=== PATIENT | female | born 1940 | race Caucasian/White ===

== ENCOUNTER 2017-03-07 14:31 | Observation (INO) | payer MEDICARE, BC ==
[2017-03-07 15:10] LABS: Hematocrit 38 % (35-47); Hemoglobin 12.6 g/dl (12.0-16.0); Mean Corpuscular HGB Conc 33 g/dl (31-36); Mean Corpuscular Hemoglobin 31 pg (27-31); Mean Corpuscular Volume 92 fL (80-97); Mean Platelet Volume 8 um3 (7.4-10.4); Red Blood Count 4.14 10^6/ul (4.0-5.4); Red Cell Distribution Width 15 % (10.5-15)
[2017-03-07 15:26] LABS: BUN/Creatinine Ratio 25.4 (8-20); EGFR Non-African American 79.6 (>60); Potassium 3.8 mmol/L (3.5-5.0)
[2017-03-07 15:27] LABS: C Reactive Protein 1.5 mg/L (< 5.00); Calcium 9.1 mg/dL (8.6-10.3); EGFR African American 102.4 (>60); Globulin 2.6 g/dL (2-4); Magnesium 2.5 mg/dL (1.9-2.7); Total Bilirubin 0.3 mg/dL (0.2-1.0); Total Protein 6.6 g/dL (6.4-8.9)
[2017-03-07 15:28] LABS: Troponin I 0.01 ng/mL (<0.04)
[2017-03-07] MEDS ORDERED: NS 0.9% 1000 ML* 1,000 ML IV ONE (15:57)
[2017-03-07 15:58] LABS: TSH (Thyroid Stimulating Horm) 0.72 mcIU/mL (0.34-5.60)
[2017-03-07] MEDS ORDERED: Ondansetron INJ* 2 MG/ML VIAL IV ONE (15:58)
--- NOTE | 2017-03-07 16:39 | RAD ---
INDICATION: Severe epigastric pain and shortness of breath COMPARISON: None. TECHNIQUE: Single AP portable view of the chest was obtained. FINDINGS: Image quality is compromised due to the relative inferiority of a portable chest x-ray. There is a surgical clip overlying the right lung apex. The heart and mediastinum exhibit normal size and contour. There is coarse calcification overlying the arch of the aorta. On the AP view the lungs appear hyperaerated. There is pleural-based linear density overlying the medial aspect of the right lung apex adjacent to the surgical clip. Otherwise the lungs are grossly clear. There is no evidence of a large pleural effusion. Visualized bones are normal for the patient's age. IMPRESSION: No radiographic evidence for acute cardiopulmonary abnormality on this portable chest x-ray.
--- NOTE | 2017-03-07 17:13 | RAD ---
HISTORY: Epigastric pain COMPARISONS: None TECHNIQUE: Multiple transverse and longitudinal ultrasound images were obtained of the right upper quadrant. FINDINGS: LIVER: The liver is normal in dimensions and echogenicity. Normal hepatic and portal venous blood flow is duplicated with color flow imaging. There is no gross intrahepatic biliary duct dilatation. GALLBLADDER AND EXTRAHEPATIC BILIARY DUCT: There are multiple echogenic shadowing and mobile stones in the gallbladder lumen. There is no pericholecystic fluid or gallbladder wall thickening. The common bile duct measures a maximum diameter of 6 mm. PANCREAS: The portions of the pancreas not obscured by bowel gas are normal in appearance. RIGHT KIDNEY: The right kidney is normal in size, morphology and echogenicity. AORTA AND IVC: The visualized portions are normal in appearance and not pathologically dilated. IMPRESSION: CHOLELITHIASIS WITHOUT APPEARANCE OF BILIARY OBSTRUCTION OR ACUTE INFLAMMATORY CHANGE.
[2017-03-07 17:31] LABS: Urine Bilirubin Negative (Negative); Urine Glucose Negative (Negative); Urine Nitrite Negative (Negative)
[2017-03-07] MEDS ORDERED: Al Hydrox/Mg Hydrox/Simet LIQ* 30 ML UDC PO PRN (18:42)
[2017-03-07] MEDS ORDERED: Ondansetron INJ* 2 MG/ML VIAL IV PRN (18:42)
[2017-03-07] MEDS ORDERED: NS 0.9% 1000 ML* 1,000 ML IV SCH (18:45)
[2017-03-07] MEDS ORDERED: Albuterol HFA INHALER* 8 gm MDI INH PRN (18:51)
[2017-03-07] MEDS ORDERED: Ketorolac INJ* 15 MG/ML 1 ML VIAL IV PUSH PRN (18:59)
[2017-03-07] MEDS ORDERED: Enoxaparin(*) 30 MG/0.3 ML SYR SUBCUT SCH ×2 (19:00→20:00)
[2017-03-07] MEDS ORDERED: Azithromycin IV(*) 500 MG in NS 0.9% 250 ML* 250 ML IVPB SCH (20:00)
[2017-03-07] MEDS ORDERED: Pantoprazole IV* 40 MG IV SCH (20:00)
[2017-03-07] MEDS: Sucralfate TAB* 1 GM PO SCH (20:24)
[2017-03-07] MEDS ORDERED: ALPRAZolam TAB* 0.5 MG PO SCH (21:00)
--- NOTE | 2017-03-07 23:23 | HP ---
HISTORY AND PHYSICAL: DATE OF ADMISSION: 03/07/17 CHIEF COMPLAINT: Abdominal pain. HISTORY OF PRESENT ILLNESS: Ms. 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 The patient states that her symptoms began in November, when she experienced some pain after eating with associated belching. She states the pain comes on about 20 to 30 minutes after eating and can also last for hours. She reports it is associated with nausea, but no vomiting. She has seen a GI doctor named Dr. Feror in [place], who reportedly referred her to [facility] where she was evaluated by a surgeon and it was felt that her symptoms were due to her gallstones, but they felt that she was too high risk for surgery. She also reports having an endoscopy done by a Dr. Varner at [facility] on 01/22/17, however, I do not have the report. The patient has been trying to maintain a low-fat diet; however, it seems that regardless of what she eats the pain seems to continue to progress. Last night , she had some Cheerios with almond milk and the pain became severe and she is still not feeling better this morning. She called a local GI office to see if she can get in and they recommended she come to the emergency room for further evaluation. The patient also incidentally reports some chest pain, which occurred a few days ago that was very sharp on the left side; it lasted for about 10 minutes. She said it was not pleuritic. She has not had any recent fever, chills, dysuria, hematuria, hematochezia, or melena. In regards to the patient's MAME, she was initially diagnosed in 2009. More recently, she has had some CT scans that have shown some new pulmonary nodules and progressions of old ones, and Dr. West has been concerned about possible recurrence and has restarted her on a triple antibiotic therapy, which she has been on for about 3 weeks now. PAST MEDICAL HISTORY: COPD, on home oxygen 2 L; MAME; pneumothorax; depression; hypertension. PAST SURGICAL HISTORY: Lung biopsy. HOME MEDICATIONS: 1. Ethambutol 400 mg by mouth 3 times weekly. 2. Mycobutin 300 mg by mouth 3 times weekly. 3. Azithromycin 500 mg by mouth 3 times weekly. 4. Amlodipine 5 mg by mouth daily. 5. Vitamin E 400 units by mouth daily. 6. Effexor 75 mg by mouth daily. 7. Anoro 1 puff inhaled daily. 8. Probiotic 1 tablet by mouth daily. 9. Protonix 40 mg by mouth daily. 10. Magnesium oxide 400 mg by mouth daily. 11. Glucosamine chondroitin 1 tablet by mouth daily. 12. Folic acid 1 mg by mouth daily. 13. Ferrous gluconate 27 mg by mouth daily. 14. Vitamin B12 500 mcg by mouth daily. 15. Calcium citrate 1 tablet by mouth daily. 16. Vitamin C 500 mg by mouth daily. 17. Albuterol 1 puff inhaled every 6 hours as needed for shortness of breath or wheezing. 18. Xanax 0.5 mg by mouth at bedtime. 19. Carafate 1 g 4 times daily. ALLERGIES: The patient reports no known drug allergies. FAMILY HISTORY: Significant for father with Alzheimer's and mother with depression. SOCIAL HISTORY: The patient is a former [id number]-year smoker, quit in 1994. Denies any alcohol or illicit drug use. REVIEW OF SYSTEMS: A 12-point review of systems is negative except for that as noted in the HPI. PHYSICAL EXAMINATION GENERAL: The patient is a thin, elderly, female, lying in bed, in no apparent distress. VITAL SIGNS: On admission, temperature 99.7, heart rate of 108, respiratory rate of 16, O2 saturation 94% on 3 L, blood pressure 127/86. HEENT: Head: Normocephalic, atraumatic. Eyes: Pupils equal, round, and reactive to light and accommodation. Anicteric sclerae. ENT: Dry mucous membranes. No cervical adenopathy. LUNGS: Clear to auscultation bilaterally, prolonged expiratory phase. No wheezing appreciated. CARDIOVASCULAR: Sinus tachycardia. No murmurs, gallops, or rubs. ABDOMEN: Soft, nondistended, tender to palpation in the epigastric area. No rebound or guarding. Bowel sounds are positive. EXTREMITIES: No cyanosis, clubbing, or edema. NEURO: The patient is alert and oriented x3. No focal neurological deficits. DIAGNOSTIC STUDIES/LAB DATA: White blood cell count of 4, hematocrit of 38, platelets of 186. INR of 0.93. D-dimer negative. Sodium 138, potassium 3.8, chloride 102, carbon dioxide 33, BUN of 18, creatinine of 0.71, glucose of 135, lactic acid of 1.4, calcium 9.1. LFTs within normal limits. Troponin 0.01. CRP of 1.5. BNP of 104. TSH of 0.72. Lipase of 19. UA negative. Chest x-ray personally reviewed shows hyperexpanded lungs. No acute changes. Abdominal ultrasound shows cholelithiasis without appearance of obstruction or acute inflammatory changes. EKG personally reviewed shows sinus tachycardia, PAC, some possible ST depressions in the lateral leads as well as II and aVF. ASSESSMENT AND PLAN: Progressive postprandial abdominal pain, nausea, and a recent bout of chest pain in a 76-year-old female with a history of known cholelithiasis; chronic obstructive pulmonary disease, on home oxygen; Mycobacterium avium- intracellulare infection, on triple therapy; hypertension; depression. 1. Abdominal pain. This certainly could be biliary colic. The patient states she was seen by a surgeon in the [facility] and was felt to be too high risk for surgery. It was recommended she be referred by her PCP to [facility] as an outpatient. I do not think we will be able to resolve this here in the hospital. I will try to minimize her p.o. pills overnight. For now, we will give her IV PPI in case there is some element of gastritis or ulcer, although it does not sound like that was the case on her recent EGD. We will try to obtain those records. Continue her home Carafate. We will give Toradol for any colicky pain. I am not sure that a surgical or a GI consult would be of any benefit at this time, although can reevaluate after obtaining some more outside records. The patient does report some weight loss about 10 pounds in the last 2 months. We will order nutrition consult. She may benefit from some nutritional supplements. 2. Chest pain. Had a brief episode a few days ago. The patient does have some ST depressions on her EKG. Unfortunately, we have no old EKGs to compare to. Initial troponin is negative. It seems unlikely to be acute coronary syndrome, although the patient does have some risk factors. Continue to trend her troponins and repeat an EKG in the morning. We will hold off on a stress test right now. 3. Mycobacterium avium-intracellulare infection. We will continue the patient' s home antibiotic therapy for now. We will continue the patient with IV azithromycin tonight, can reorder her ethambutol for tomorrow night, and rifabutin the following night if she is still here. 4. Chronic obstructive pulmonary disease. It seems to be at her baseline. We will continue p.r.n. albuterol and we will use Dulera while the patient is hospitalized. Continue her home supplemental oxygen. 5. Hypertension. Continue amlodipine. 6. DVT prophylaxis. Lovenox subcu. 7. Code status. The patient is a full code. TIME SPENT: Total time spent on this admission 65 minutes with over the half the time spent [id number] with the patient in counseling and coordinating care. [id number]/[facility] #: [id number] EMMY
[2017-03-08] MEDS: Sucralfate TAB* 1 GM PO SCH ×2 (07:46→14:01)
[2017-03-08] MEDS ORDERED: Umeclidin/Vilant 62.5 MDI 62.5/25 mcg 14 INH ELLIPTA DEVICE INH SCH (09:00)
[2017-03-08] MEDS ORDERED: amLODIPine TAB* 5 MG PO SCH (09:00)
[2017-03-08] MEDS ORDERED: Venlafaxine EXT RELEASE CAP* 75 MG PO SCH (09:00)
[2017-03-08] MEDS ORDERED: Magnesium Oxide TAB* 400 MG PO SCH (09:00)
[2017-03-08] MEDS ORDERED: Lactobacillus Acidophilu (GG)* 1 CAP CAP PO SCH (09:00)
--- NOTE | 2017-03-08 09:04 | ED ---
Allyssa Blake Alfonso, scribed for Vince Caraballo MD on 03/07/17 at 1548 . Abdominal Pain/Female - HPI Summary HPI Summary: This patient is a 76 year old F presenting to [facility] accompanied by with a chief complaint of epigastric pain since three months ago. The CC is described as aching. The patient rates the pain 3/10 in severity. Symptoms aggravated by oral abx and alleviated by nothing. Not alleviated by dietary changes. Patient reports nausea, loss of appetite, and weight loss (10 lb in past few days). She denies vomiting. She reports a GI and surgical consult which revealed gallstones and gallbladder problems that they wont operate on. Patient is on NC. PMHx of COPD and HTN. - History of Current Complaint Chief Complaint: EDAbdPain Stated Complaint: ABD PAIN,SOB Time Seen by Provider: 03/07/17 15:36 Hx Obtained From: Patient Onset/Duration: Sudden Onset, Lasting Weeks - 3 months, Still Present Timing: Constant Severity Initially: Moderate Severity Currently: Moderate Pain Intensity: 3 Pain Scale Used: 0-10 Numeric Location: Epigastric Character: Other: - Aching Aggravating Factor(s): Other: - Oral abx Alleviating Factor(s): Nothing Associated Signs and Symptoms: Positive: Nausea, Other: - Positive loss of appetite, weight loss.. Negative: Vomiting Allergies/Adverse Reactions: Allergies Allergy/AdvReac Type Severity Reaction Status Date / Time No Known Allergies Allergy Verified 03/07/17 14:34 PMH/Surg Hx/FS Hx/Imm Hx Cardiovascular History: Reports: Hx Hypertension Respiratory History: Reports: Hx Chronic Obstructive Pulmonary Disease (COPD) Infectious Disease History: No Infectious Disease History: Reports: History Other Infectious Disease - MYCOBACTERIAL INFECTION OF LUNGS Denies: Traveled Outside the [place] in Last 30 Days - Family History Known Family History: Positive: Hypertension - Social History Alcohol Use: Occasionally Alcohol Amount: SOCIAL Substance Use Type: Reports: None Smoking Status (MU): Former Smoker Review of Systems Negative: Fever Positive: Abdominal Pain - Epigastric, Nausea, Other - Positive loss of appetite , and weight loss. Negative: Vomiting All Other Systems Reviewed And Are Negative: Yes Physical Exam - Summary Physical Exam Summary: VITAL SIGNS: Reviewed. GENERAL: Patient is a thin elderly female who is lying comfortable in the stretcher. Patient is not in any acute respiratory distress. HEAD AND FACE: Normocephalic and atraumatic. EYES: PERRLA, EOMI x 2, No injected conjunctiva. EARS: Hearing grossly intact. Ear canals and tympanic membranes are WNL. MOUTH: Oropharynx within normal limits. Dry oral mucous membranes. NECK: Supple, trachea is midline, no adenopathy, no JVD. CHEST: Symmetric, no tenderness at palpation LUNGS: Clear to auscultation bilaterally. No wheezing or crackles. CVS: RRR, S1 and S2 present, no murmurs or gallops appreciated. ABDOMEN: Soft, non-tender. No signs of distention. Positive bowel sounds. No rebound no guarding, and no masses palpated. No abdominal bruit or pulsations. EXTREMITIES: FROM in all major joints, no edema, no cyanosis or clubbing. NEURO: Alert and oriented x 3. No acute neurological deficits. Speech is normal. SKIN: Dry and warm Triage Information Reviewed: Yes Vital Signs On Initial Exam: Initial Vitals Temp Pulse Resp BP Pulse Ox 99.7 F 108 16 127/86 94 03/07/17 14:34 03/07/17 14:34 03/07/17 14:34 03/07/17 14:34 03/07/17 14:34 Vital Signs Reviewed: Yes - Leonidas Coma Scale Coma Scale Total: 15 Diagnostics - Vital Signs Vital Signs Temp Pulse Resp BP Pulse Ox 03/07/17 15:10 99.7 F 108 22 127/86 94 03/07/17 14:34 99.7 F 108 16 127/86 94 - Laboratory Lab Results: Lab Results 03/07/17 03/07/17 03/07/17 Range/Units 15:00 15:00 15:00 WBC 4.0 (3.5-10.8) 10^3/ul RBC 4.14 (4.0-5.4) 10^6/ul Hgb 12.6 (12.0-16.0) g/dl Hct 38 (35-47) % MCV 92 (80-97) fL MCH 31 (27-31) pg MCHC 33 (31-36) g/dl RDW 15 (10.5-15) % Plt Count 186 (150-450) 10^3/ul MPV 8 (7.4-10.4) um3 Neut % (Auto) 68.8 (38-83) % Lymph % (Auto) 19.7 L (25-47) % [place] % (Auto) 9.7 H (1-9) % Eos % (Auto) 1.2 (0-6) % Baso % (Auto) 0.6 (0-2) % Absolute Neuts (auto) 2.7 (1.5-7.7) 10^3/ul Absolute Lymphs (auto) 0.8 L (1.0-4.8) 10^3/ul Absolute Monos (auto) 0.4 (0-0.8) 10^3/ul Absolute Eos (auto) 0 (0-0.6) 10^3/ul Absolute Basos (auto) 0 (0-0.2) 10^3/ul Absolute Nucleated RBC 0 10^3/ul Nucleated RBC % 0.1 INR (Anticoag Therapy) 0.93 (0.89-1.11) APTT 29.1 (26.0-36.3) seconds D-Dimer, Quantitative < 200 (Less Than 230) ng/mL Sodium 138 (133-145) mmol/L Potassium 3.8 (3.5-5.0) mmol/L Chloride 102 (101-111) mmol/L Carbon Dioxide 33 H (22-32) mmol/L Anion Gap 3 (2-11) mmol/L BUN 18 (6-24) mg/dL Creatinine 0.71 (0.51-0.95) mg/dL Est GFR ( Amer) 102.4 (>60) Est GFR (Non-Af Amer) 79.6 (>60) BUN/Creatinine Ratio 25.4 H (8-20) Glucose 135 H (70-100) mg/dL Lactic Acid (0.5-2.0) mmol/L Calcium 9.1 (8.6-10.3) mg/dL Magnesium 2.5 (1.9-2.7) mg/dL Total Bilirubin 0.30 (0.2-1.0) mg/dL AST 18 (13-39) U/L ALT 14 (7-52) U/L Alkaline Phosphatase 48 (34-104) U/L Total Creatine Kinase 58 (10-223) U/L CK-MB (CK-2) 3.6 (0.6-6.3) ng/mL Troponin I 0.01 (<0.04) ng/mL C-Reactive Protein 1.50 (< 5.00) mg/L B-Natriuretic Peptide ( - 100) pg/mL Total Protein 6.6 (6.4-8.9) g/dL Albumin 4.0 (3.2-5.2) g/dL Globulin 2.6 (2-4) g/dL Albumin/Globulin Ratio 1.5 (1-3) Lipase 19 (11.0-82.0) U/L TSH Pending 03/07/17 03/07/17 Range/Units 15:00 15:00 WBC (3.5-10.8) 10^3/ul RBC (4.0-5.4) 10^6/ul Hgb (12.0-16.0) g/dl Hct (35-47) % MCV (80-97) fL MCH (27-31) pg MCHC (31-36) g/dl RDW (10.5-15) % Plt Count (150-450) 10^3/ul MPV (7.4-10.4) um3 Neut % (Auto) (38-83) % Lymph % (Auto) (25-47) % [place] % (Auto) (1-9) % Eos % (Auto) (0-6) % Baso % (Auto) (0-2) % Absolute Neuts (auto) (1.5-7.7) 10^3/ul Absolute Lymphs (auto) (1.0-4.8) 10^3/ul Absolute Monos (auto) (0-0.8) 10^3/ul Absolute Eos (auto) (0-0.6) 10^3/ul Absolute Basos (auto) (0-0.2) 10^3/ul Absolute Nucleated RBC 10^3/ul Nucleated RBC % INR (Anticoag Therapy) (0.89-1.11) APTT (26.0-36.3) seconds D-Dimer, Quantitative (Less Than 230) ng/mL Sodium (133-145) mmol/L Potassium (3.5-5.0) mmol/L Chloride (101-111) mmol/L Carbon Dioxide (22-32) mmol/L Anion Gap (2-11) mmol/L BUN (6-24) mg/dL Creatinine (0.51-0.95) mg/dL Est GFR ( Amer) (>60) Est GFR (Non-Af Amer) (>60) BUN/Creatinine Ratio (8-20) Glucose (70-100) mg/dL Lactic Acid 1.4 (0.5-2.0) mmol/L Calcium (8.6-10.3) mg/dL Magnesium (1.9-2.7) mg/dL Total Bilirubin (0.2-1.0) mg/dL AST (13-39) U/L ALT (7-52) U/L Alkaline Phosphatase (34-104) U/L Total Creatine Kinase (10-223) U/L CK-MB (CK-2) (0.6-6.3) ng/mL Troponin I (<0.04) ng/mL C-Reactive Protein (< 5.00) mg/L B-Natriuretic Peptide 104 H ( - 100) pg/mL Total Protein (6.4-8.9) g/dL Albumin (3.2-5.2) g/dL Globulin (2-4) g/dL Albumin/Globulin Ratio (1-3) Lipase (11.0-82.0) U/L TSH Result Diagrams: 03/07/17 15:00 03/07/17 15:00 Lab Statement: Any lab studies that have been ordered have been reviewed, and results considered in the medical decision making process. - Radiology CXR Radiology Interpretation Completed By: Radiologist - No radiographic evidence for acute cardiopulmonary abnormality on this portable chest x-ray. - EKG 1442 Cardiac Rate: Tachycardia - BPM 104 EKG Rhythm: Sinus Tachycardia EKG Interpretation: ST depressions in V3-V6, II, and aVF. - Additional Comments Diagnostic Additional Comments: Abdomen US reveals, per radiologist, CHOLELITHIASIS WITHOUT APPEARANCE OF BILIARY OBSTRUCTION OR ACUTE INFLAMMATORY CHANGE. Abdominal Pain Fem Course/Dx - Course Course Of Treatment: This patient is a 76 year old F presenting to [facility] accompanied by with a chief complaint of epigastric pain since three months ago. The CC is described as aching. The patient rates the pain 3/10 in severity. Symptoms aggravated by oral abx and alleviated by nothing. Not alleviated by dietary changes. Patient reports nausea, loss of appetite, and weight loss (10 lb in past few days). She denies vomiting. She reports a GI and surgical consult which revealed gallstones and gallbladder problems that they wont operate on. Patient is on NC. PMHx of COPD and HTN. Test results without any significant abnormalities except for carbon dioxide of 33, glucose of 135, and BNP of 104. Urinalysis negative for UTI. EKG reveals sinus tachycardia and ST depressions in V3-V6, II, and aVF. CXR reveals No radiographic evidence for acute cardiopulmonary abnormality on this portable chest x-ray. Abdomen US reveals CHOLELITHIASIS WITHOUT APPEARANCE OF BILIARY OBSTRUCTION OR ACUTE INFLAMMATORY CHANGE. In the ED course the patient was given IV fluids for hydration. However, because of the EKG ST depression the patient might be dealing with stable angina. Therefore I consulted the case with Dr. Hill (hospitalist) who accepts the patient for admission. Patient is hemodynamically stable and alert and oriented to person, place, and time. - Diagnoses Provider Diagnoses: Epigastric pain, Cholelithiasis, Abnormal EKG - Provider Notifications Discussed Care Of Patient With: Mike Hill Time Discussed With Above Provider: 17:27 Instructed by Provider To: Other - Consulted Dr. Hill (hospitalist) who accepts the patient for admission. Discharge - Discharge Plan Condition: Stable Disposition: ADMITTED TO [facility] The documentation as recorded by the Allyssa canas Alfonso accurately reflects the service I personally performed and the decisions made by me, Vince Caraballo MD.
[2017-03-08] MEDS ORDERED: Mometasone/Formoter 200/5 MDI INH SCH (10:00)
[2017-03-08] MEDS ORDERED: Ursodiol CAP* 300 MG PO SCH (11:00)
[2017-03-08 11:35] VITALS: BP 131/67
--- NOTE | 2017-03-08 14:14 | DCNOTE ---
Patient seen this morning. Tolerated full liquid breakfast with no pain, also tolerated low-fat diet for lunch. EGD records from [place] show no evidence of ulcer or gastritis and GI note remarks that epigastric pain is likely due to gallstones. On exam, RRR, s1 and s2 present, no m/g/r, abd soft, NTND, BS+, lungs with prolonged expiratory phase Will discharge the patient home on Actigall to see if this may contribute to gallstone resolution over time. Recommend she get PCP referral for evaluation for cholecystectomy and [facility] [place].
--- NOTE | 2017-03-09 06:19 | DS ---
DISCHARGE SUMMARY: DATE OF ADMISSION: 03/07/17 DATE OF DISCHARGE: 03/08/17 PRIMARY CARE PHYSICIAN: Nubia Duarte. PRINCIPAL DISCHARGE DIAGNOSES: 1. Epigastric pain likely due to biliary colic. 2. EKG abnormality. 3. Chronic obstructive pulmonary disease. 4. Mycobacterium avium-intracellulare infection. SECONDARY DIAGNOSES: 1. Depression. 2. Hypertension. 3. History of pneumothorax. DISCHARGE MEDICATION REGIMEN: 1. Ursodiol 250 mg by mouth 3 times daily. 2. Xanax 0.5 mg by mouth at bedtime. 3. Protonix 40 mg by mouth daily. 4. Albuterol 1 puff inhaled every 6 hours as needed for shortness of breath or wheezing. 5. Anoro 62.5/25 Ellipta device 1 puff inhaled daily. 6. Amlodipine 5 mg by mouth daily. 7. Venlafaxine 75 mg by mouth daily. 8. Folic acid 1 mg by mouth daily. 9. Probiotic 1 tablet by mouth daily. 10. Calcium citrate and vitamin D 1 tablet by mouth daily. 11. Glucosamine chondroitin and vitamin C 1 tablet by mouth daily. 12. Vitamin C 500 mg by mouth daily. 13. Magnesium oxide 400 mg by mouth daily. 14. Vitamin B12 500 mcg by mouth daily. 15. Vitamin E 400 units by mouth daily. 16. Ferrous gluconate 27 mg by mouth daily. 17. Mycobutin 300 mg by mouth 3 times weekly. 18. Azithromycin 500 mg by mouth 3 times weekly. 19. Ethambutol 400 mg by mouth 3 times weekly. STUDIES DONE DURING HOSPITALIZATION: Chest x-ray, impression: No radiographic evidence for acute cardiopulmonary abnormality on this portable chest x-ray. Ultrasound of the abdomen, impression: Cholelithiasis without appearance of biliary obstruction or acute inflammatory change. HISTORY OF PRESENT ILLNESS AND HOSPITAL SUMMARY: Please see admission history and physical for full details. Briefly, Ms. Hicks is a pleasant 76-year-old female with a past medical history as above who presented to the hospital with progressive epigastric pain. She has had an extensive workup done for this over the past few months including an upper endoscopy. The records of this were obtained, did not show any evidence of gastritis or ulcerations and GI note indicated that they felt that her epigastric pain was likely due to her gallstones. She states she was seen at [facility], but was deemed too high risk for surgery and has since been trying to deal with this at home. The night prior to admission and the day of she felt like her symptoms were getting worse. She called the local GI office and was told to come to the hospital for further evaluation. Labs here were fairly unremarkable. The patient underwent an EKG as she had reported chest pain a few days earlier, which showed some possible ST depressions in the lateral leads and some in the inferior leads. The patient was monitored in the hospital overnight. Her troponins were trended and remained negative. She was monitored on telemetry without any concerning arrhythmias. A repeat EKG the following morning with a normal heart rate showed resolution of the changes, I am wondering if this may have been more rate related than anything else. In regards to the patient's epigastric pain, I started her on ursodiol and recommended she see her PCP and consider referral to [facility] to get a second opinion on whether she may be a surgical candidate. During the hospitalization, the patient was given full liquid diet to begin with, which she tolerated well and then she also tolerated a low-fat diet with no significant abdominal pain. It was noted the patient is currently being treated for MAME with [address] West. There has been no recent confirmation of this infection, although she has had it in the past and her lung lesions on CT scan as an outpatient have been progressing. The patient is in the process of being referred to Dr. Higginbotham for further evaluation, management, and treatment of this. TIME SPENT: Total time spent on this discharge 45 minutes. This is a summary of the hospitalization. Please see the full medical record for further details. [id number]/[facility] #: [id number] MTDD
== END 2017-03-08 15:46 | disposition home or self-care (01) ==
LOC: ED 14:31 → MEDTELE 17:53
PROVIDERS: ADMIT Hospitalist; ATTEND Hospitalist
DX: R10.13 Epigastric pain (principal); J44.9 Chronic obstructive pulmonary disease, unspecified; Z87.891 Personal history of nicotine dependence; K80.20 Calculus of gallbladder without cholecystitis without obstruction; R94.31 Abnormal electrocardiogram [ECG] [EKG]; F32.9 Major depressive disorder, single episode, unspecified; I10 Essential (primary) hypertension; Z87.09 Personal history of other diseases of the respiratory system
CPT/HCPCS: 36415; 71010; 76705; 80053; 81003; 82550; 82553; 83605; 83690; 83735; 83880; 84443; 84484; 85025; 85379; 85610; 85730; 86140; 93005; 99284; A9270-GY; G0378; J0456; J1650; J2405

== ENCOUNTER 2018-01-29 17:47 | Emergency (ER) | payer MEDICARE, BC ==
[2018-01-29 18:12] LABS: ABS Basophils 0.1 10^3/ul (0-0.2); ABS Eosinophils 0.1 10^3/ul (0-0.6); ABS Monocytes 0.6 10^3/ul (0-0.8); ABS Neutrophils 4.4 10^3/ul (1.5-7.7); ABS Nucleated RBC 0 10^3/ul; Eosinophil % 2.2 % (0-6); Hematocrit 39 % (35-47); Hemoglobin 13.1 g/dl (12.0-16.0); Lymphocyte % 15.7 % (25-47); Mean Corpuscular HGB Conc 34 g/dl (31-36); Mean Corpuscular Hemoglobin 32 pg (27-31); Mean Corpuscular Volume 96 fL (80-97); Nucleated Red Blood Cells % 0; Platelet Count 210 10^3/ul (150-450); Red Blood Count 4.07 10^6/ul (4.00-5.40); Red Cell Distribution Width 13 % (10.5-15); White Blood Count 6.2 10^3/ul (3.5-10.8)
[2018-01-29 18:33] LABS: EGFR Non-African American 60.4 (>60)
[2018-01-29 19:23] VITALS: BP 118/62
--- NOTE | 2018-01-29 19:27 | ED ---
Castro Blake Tariq, scribed for Peterson Boone MD on 01/29/18 at 1828 . Abdominal Pain/Female - HPI Summary HPI Summary: A 77 y/o female presents to ED c/o stabbing abdominal pain. According to pt, the pain is found in the epigastric region and she is unable to eat. She has tried eliminating gluten and fats from her diet, however, nothing alleviates Sx. She describes the pain as stabbing just under her ribs. When she does eat, she feels very bloated and she is full of gas. Belching helps alleviate pain. She noted that the pain has happening for over a year and has been losing lots of weight. Last year she was treated for IBS. Her current medications are for her blood pressure, probiotics and others for her lungs. PMHx of end-stage COPD. PCP is located in [place], however lives in [place] during summer session. - History of Current Complaint Chief Complaint: EDAbdPain Stated Complaint: ABD PAIN Time Seen by Provider: 01/29/18 17:56 Hx Obtained From: Patient Onset/Duration: Still Present, Other - DURATION: Over a year. Timing: Constant Severity Initially: Mild Severity Currently: Mild Pain Intensity: 2 Pain Scale Used: 0-10 Numeric Location: Epigastric Radiates: No Character: Sharp - Stabbing Aggravating Factor(s): Food Alleviating Factor(s): Other: - Belching Associated Signs and Symptoms: Positive: Decreased Appetite Allergies/Adverse Reactions: Allergies Allergy/AdvReac Type Severity Reaction Status Date / Time No Known Allergies Allergy Verified 01/29/18 17:48 PMH/Surg Hx/FS Hx/Imm Hx Cardiovascular History: Reports: Hx Hypertension Respiratory History: Reports: Hx Chronic Obstructive Pulmonary Disease (COPD) GI History: Reports: Other GI Disorders - hx of gallstones Musculoskeletal History: Reports: Hx Arthritis, Hx Osteoporosis, Hx Scoliosis Sensory History: Reports: Hx Contacts or Glasses - glasses for TV or fine print reading Denies: Hx Hearing Aid, Hx Hearing Problem Opthamlomology History: Reports: Hx Contacts or Glasses - glasses for TV or fine print reading Psychiatric History: Reports: Hx Anxiety, Hx Depression Infectious Disease History: No Infectious Disease History: Reports: History Other Infectious Disease - MYCOBACTERIAL INFECTION OF LUNGS Denies: Traveled Outside the [place] in Last 30 Days - Family History Known Family History: Positive: Hypertension - Social History Alcohol Use: Occasionally Alcohol Amount: SOCIAL Substance Use Type: Reports: None Smoking Status (MU): Former Smoker Review of Systems Positive: Other - POSITIVE: Decreased appetite. Negative: Fever Gastrointestinal: Other - POSITIVE: Bloating Positive: Abdominal Pain - Stabbing, Other All Other Systems Reviewed And Are Negative: Yes Physical Exam - Summary Physical Exam Summary: Appearance: Thin and fragile, chronic ill appearing no pain distress Skin: Fragile skin Head/face: normal Eyes: EOMI, DAMION ENT: normal Neck: supple, non-tender Respiratory: scattered thin crackles throughout lungs Cardiovascular: RRR, pulses symmetrical Abdomen: non-tender, soft Bowel Sounds: present Musculoskeletal: normal, strength/ROM intact Neuro: normal, sensory motor intact, A&Ox3 Triage Information Reviewed: Yes Vital Signs On Initial Exam: Initial Vitals Temp Pulse Resp BP Pulse Ox 99.4 F 76 22 176/91 97 01/29/18 17:48 01/29/18 17:48 01/29/18 17:48 01/29/18 17:48 01/29/18 17:48 Vital Signs Reviewed: Yes Diagnostics - Vital Signs Vital Signs Temp Pulse Resp BP Pulse Ox 01/29/18 17:48 99.4 F 76 22 176/91 97 - Laboratory Lab Results: Lab Results 01/29/18 Range/Units 18:01 WBC 6.2 (3.5-10.8) 10^3/ul RBC 4.07 (4.00-5.40) 10^6/ul Hgb 13.1 (12.0-16.0) g/dl Hct 39 (35-47) % MCV 96 (80-97) fL MCH 32 H (27-31) pg MCHC 34 (31-36) g/dl RDW 13 (10.5-15) % Plt Count 210 (150-450) 10^3/ul MPV 8.0 (7.4-10.4) um3 Neut % (Auto) 70.6 (38-83) % Lymph % (Auto) 15.7 L (25-47) % Wharton % (Auto) 10.4 H (0-7) % Eos % (Auto) 2.2 (0-6) % Baso % (Auto) 1.1 (0-2) % Absolute Neuts (auto) 4.4 (1.5-7.7) 10^3/ul Absolute Lymphs (auto) 1.0 (1.0-4.8) 10^3/ul Absolute Monos (auto) 0.6 (0-0.8) 10^3/ul Absolute Eos (auto) 0.1 (0-0.6) 10^3/ul Absolute Basos (auto) 0.1 (0-0.2) 10^3/ul Absolute Nucleated RBC 0 10^3/ul Nucleated RBC % 0 Result Diagrams: 01/29/18 18:01 01/29/18 18:01 Lab Statement: Any lab studies that have been ordered have been reviewed, and results considered in the medical decision making process. - EKG 1805 Cardiac Rate: NL - 65 BPM EKG Rhythm: Sinus Rhythm ST Segment: Normal EKG Interpretation: NORMAL AXIS Re-Evaluation - Re-Evaluation First Eval Re-Evaluation Time: 18:48 - Failure to thrive, end-stage COPD, early satiety. Comment: Patient is happy with result. Abdominal Pain Fem Course/Dx - Course Course Of Treatment: Patient with chronic epigastric discomfort with eating as well as early satiety. The patient has had multiple studies including HIDA scan 2, upper GI series, barium enema, endoscopy, CT scan, PET/CT. She sees GI in [facility] as well as [place]. She has been losing weight recently as she has discomfort anytime she eats. I discussed the case with GI after laboratories are nonrevealing. She does not wish to be admitted. These issues are mostly chronic in nature. GI suggest she follow-up more closely with her primary care physician and see the doctor she's previously had relationships with. She has tried to book with them however there booking 2 months L in the outpatient setting. She was also given the number for GI and [facility] that she can try. She is encouraged to eat high-calorie, lower residual items such as ice cream if tolerated. She will supplement with boost or ensure. - Diagnoses Provider Diagnoses: Chronic epigastric pain, Adult failure to thrive syndrome, End stage COPD - Provider Notifications Discussed Care Of Patient With: Pete Chaparro Time Discussed With Above Provider: 18:30 Instructed by Provider To: Other - GI Doctor stated that they have no immediate availability for outpatient Discharge - Sign-Out/Discharge Documenting (check all that apply): Discharge/Admit/Transfer - DISCHARGE - Discharge Plan Condition: Stable Disposition: HOME Patient Education Materials: Epigastric Pain (ED) Referrals: Harpal Glynn MD [Primary Care Provider] - Additional Instructions: [facility] [address], [place] [address] [phone] Call for an appointment with your doctor first thing in the morning. Frequent very small meals. Ice cream or supplement such as Ensure or boost. Return if worse, new symptoms or other concerns. - Billing Disposition and Condition Condition: STABLE Disposition: Home The documentation as recorded by the Castro canas Tariq accurately reflects the service I personally performed and the decisions made by me, Peterson Boone MD.
== END 2018-01-29 19:22 | disposition home or self-care (01) ==
LOC: ED 17:47
DX: R10.13 Epigastric pain (principal); G89.29 Other chronic pain; R68.81 Early satiety; R62.7 Adult failure to thrive; J44.9 Chronic obstructive pulmonary disease, unspecified; Z87.891 Personal history of nicotine dependence
CPT/HCPCS: 36415; 80053; 83605; 83690; 85025; 86140; 93005; 99283